=== PATIENT | female | born 1940 | race Caucasian/White ===

== ENCOUNTER 2018-07-27 08:59 | Inpatient (IN) | payer MEDICARE, MEDICAID ==
[~2018-07-27] VITALS: Ht 157.5 cm; Wt 74.8 kg
--- NOTE | 2018-07-27 08:59 | NUR ---
BBRA 101 FROM HOME C/O NEAR SYNCOPAL EPISODE, FOUND IN CHAIR BY EMS. LIVES WITH . C/O OF ABD PAIN AND NAUSEA. NAD NOTED. PT AAO X3, LATVIAN SPEAKER. RR EVEN AND UNLABORED. CEDRICK. AT BEDSIDE FOR EVAL.
[2018-07-27] MEDS ORDERED: ONDANSETRON HCL/PF 4 MG/2 ML VIAL ONE (09:16)
[2018-07-27] MEDS ORDERED: MORPHINE SULFATE INJ 4 MG/ML DISP.SYRIN ONE (09:17)
--- NOTE | 2018-07-27 09:27 | NUR ---
OUT FOR CT OF HEAD, ABDOMEN AND PELVIS
[2018-07-27 09:28] LABS: CALCIUM, SERUM 8.9 mg/dL (8.5-10.1); CARBON DIOXIDE 27 mmol/L (21-32); CHLORIDE 102 mmol/L (98-107); CREATININE 0.9 mg/dL (0.6-1.3); GLUCOSE 184 mg/dL (74-106); POTASSIUM 4.5 mmol/L (3.5-5.1); SODIUM SERUM 136 mmol/L (136-145); UREA NITROGEN, BLOOD 21 mg/dL (7-18)
[2018-07-27] MEDS ORDERED: ONDANSETRON HCL/PF 4 MG/2 ML VIAL IVP ONE (09:30)
[2018-07-27] MEDS ORDERED: IV NS 0.9% 1,000 ML BAG IV ONE (09:30)
[2018-07-27] MEDS ORDERED: MORPHINE SULFATE INJ 2 MG/ML DISP.SYRIN IV ONE (09:30)
[2018-07-27 09:33] LABS: BASOPHILS # (AUTO) 0.1 /CMM (0.0-0.2); BASOPHILS % (AUTO) 0.7 % (0.0-2.0); EOSINOPHILS % (AUTO) 0.6 % (0.0-6.0); HEMATOCRIT 43 % (33-45); HEMOGLOBIN 14.6 g/dL (11.5-14.8); LYMPHOCYTES # (AUTO) 3.1 /CMM (0.8-4.8); LYMPHOCYTES % (AUTO) 34.6 % (20.0-44.0); MEAN CORPUSCULAR HGB CONC 34 g/dl (31.0-36.0); MEAN CORPUSCULAR VOLUME 83 fL (82-100); MONOCYTES # (AUTO) 0.5 /CMM (0.1-1.30); NEUTROPHILS # (AUTO) 5.3 /CMM (1.8-8.9); NEUTROPHILS % (AUTO) 58.1 % (43.0-81.0); PLATELET COUNT (AUTO) 261 /CMM (150-450); RED BLOOD CELL COUNT(AUTO) 5.22 MIL/uL (4.0-5.2)
[2018-07-27 09:35] LABS: ALANINE AMINOTRANSFERASE 25 U/L (12-78); ALBUMIN 3.2 g/dL (3.4-5.0); ALKALINE PHOSPHATASE 72 U/L (46-116); ASPARTATE AMINOTRANSFERASE 16 U/L (15-37); BILIRUBIN,DIRECT 0.1 mg/dL (0.0-0.2); BILIRUBIN,TOTAL 0.5 mg/dL (0.2-1.0); LIPASE 257 U/L (73-393); TOTAL PROTEIN, SERUM 6.7 g/dL (6.4-8.2)
[2018-07-27] MEDS ORDERED: MAG HYDROX/AL HYDROX/SIMETH 30 ML UDC PO PRN (12:00)
[2018-07-27] MEDS ORDERED: DEXTROSE 50%-WATER 50 ML DISP.SYRIN IV PRN (12:00)
[2018-07-27] MEDS ORDERED: HYDROCODONE/APAP 10/325MG 1 EA TABLET PO PRN (12:00)
[2018-07-27] MEDS ORDERED: HYDROCODONE/APAP 5/325MG 1 EACH TABLET PO PRN (12:00)
[2018-07-27] MEDS ORDERED: TEMAZEPAM 15 MG CAPSULE PO PRN (12:00)
[2018-07-27] MEDS ORDERED: ONDANSETRON HCL/PF 4 MG/2 ML VIAL IVP PRN (12:00)
[2018-07-27] MEDS ORDERED: ACETAMINOPHEN 325 MG TABLET PO PRN (12:00)
--- NOTE | 2018-07-27 12:02 | NUR ---
REPORT GIVEN TO ANTONIO BENDER.
[2018-07-27] MEDS: BLOOD SUGAR DIAGNOSTIC 1 EACH STRIP IN SCH ×3 (12:30→21:32)
--- NOTE | 2018-07-27 12:30 | NUR ---
HEATER ROOM HELPERCOMMERCIAL PEST CONTROL TECHNICIAN NOTES RECEIVED PT FROM ER TO ROOM 117(2)BY ANDREIA.ALERT/ORIENTED X4 WITH ANXIOUS.C/O ABDOMINAL PAIN.ON TELE HR IS 70'S WITH SR.ON ROOM AIR,TOLERATING WELL.NO SOB AND ACUTE DISTRESS NOTED.IV LINE IS ON LEFT HAND G20,SITE IS CLEAN,DRY AND INTACT.NO INFILTRATION NOTED.FAMILY IS AT BEDSIDE.SAFETY IS MAINTAINED AT ALL TIMES.BED IS IN LOW POSITION AND LOCKED.CALL LIGHT IS WITHIN REACH.WILL CONTINUE TO MONITOR THE PT CLOSELY. Addendum: 07/27/18 at 1636 by ANTONIO RAO RN SKIN ASSESSMENT IS DONE,NOTED WITH REDNESS ON SACRAL AND CHEST.PT IS CLEAN AND DRY.DIAPER IS ON.VITAL SIGNS CHECKED AND RECORDED.
--- NOTE | 2018-07-27 13:30 | NUR ---
RELATIONSHIP MGR NOTES PT IS CLEAN AND DRY.C/O ABDOMINAL PAIN.OFFER NORCO,BUT PT REFUSED IT CAUSE DIZZY.LEONOR HAMILTON MADE AWARE.AND FAMILY IS REQUESTING TO MAKE PT TO USE RESTROOM BY WALKING OR IN BEDSIDE COMMODE.WE TRIED TO EXPLAIN THE COMPLICATIONS AND ABOUT PT EVAL BEFORE SHE MAKES TO WALK.BUT FAMILY AND PT REFUSED AND THEY WANTS TO WALK NOW AND SAID THEY WILL TAKE THE RESPONSIBILITY FOR THE WHOLE THING.BY 2 PERSON ASSISTANCE MADE THE PT SIT IN BEDSIDE COMMODE.TOLERATING WELL.LEONOR HAMILTON MADE AWARE.
[2018-07-27] MEDS: MAGNESIUM HYDROXIDE 30 ML UDC PO PRN (13:34)
[2018-07-27] MEDS: IV NS 0.9% 1,000 ML IV PRN (14:48)
[2018-07-27 16:00] VITALS: BP 138/74
--- NOTE | 2018-07-27 16:30 | NUR ---
MANAGER LIBRARY NOTES PER PT REQUEST,CONSUMER CREDIT COUNSELOR JOY D/C NORCO AND START TRAMADOL 50MG PO Q8HRS.NEW ORDERS NOTED AND CARRIED OUT.
[2018-07-27] MEDS: INSULIN REGULAR, HUMAN 100 UNIT/ML 3 ML VIAL SQ PRN (16:50)
[2018-07-27] MEDS: TRAMADOL HCL 50 MG TABLET PO PRN (17:14)
--- NOTE | 2018-07-27 17:15 | NUR ---
LABORER AQUATIC LIFE NOTES NOTED WITH LEFT LOWER LEG SWELLING.REPORTED PAIN 7/10.TAB TRAMADOL GIVEN.ELEVATED THE LEG.NOTED TO RECREATION THERAPY AIDE JOY,ORDERED WILL COME AND SEE THE PT SOON.
[2018-07-27] MEDS ORDERED: CARISOPRODOL 350 MG TABLET PO PRN (18:00)
--- NOTE | 2018-07-27 18:47 | NUR ---
SAND SIFTER CLOSING NOTES PT IS ON BED.C/O PAIN ON LEFT LEG.WAITING FOR THE VENOUS DOPPLER ON LEFT LOWER LEG FOR SWELLING.NO SOB AND ACUTE DISTRESS NOTED.ENDORSED TO HEALTH AND WELLNESS INSTRUCTOR RN FOR FOLLOW UP THE VENOUS DOPPLER AND MONITOR THE PAIN LEVEL.
--- NOTE | 2018-07-27 19:19 | NUR ---
INITIAL DUPLEX VENOUS LOWER EXT BI TEST SHOWED POSITIVE FOR DVT AT LEFT SFV PROX, LEFT SFV MID AND LEFT POPLITEAL VEIN AREAS. ADVISED YULIA ALVAREZ OF PRELIMINARY RESULTS.
--- NOTE | 2018-07-27 19:55 | NUR ---
RN OPENING NOTES RECEIVED REPORT FROM DAYSHIFT RN. FOUND Pt AWAKE RESTING IN BED. NO S/S OF ACUTE DISTRESS OR SOB NOTED. Pt IS A/OX3, VERBAL, ABLE TO MAKE NEEDS KNOWN. IV ACCESS ON L HAND #20G/ SAFETY MEASURES IN PLACE. BED LOW, LOCKED, HOB ELEVATED, SIDE RAILS UP, CALL LIGHT AND BEDSIDE TABLE WITHIN REACH. WILL CONTINUE TO MONITOR Pt's CONDITION AND SAFETY THROUGHOUT THE NIGHT.
[2018-07-27 20:00] VITALS: BP 138/72
[2018-07-27 21:00] VITALS: BP 110/61
[2018-07-27] MEDS: RIVAROXABAN 15 MG TABLET PO SCH (21:26)
--- NOTE | 2018-07-27 21:36 | NUR ---
RN NOTES HS ACCUCHECK BG 152. Pt REFUSED INSULIN AT THIS TIME. Per Pt STATEMENT SAID 152 IS FINE FOR HER AND THAT HER BLOOD SUGAR TENDS TO DROP IN THE AM. WILL RECHECK BG FOR AC ACCUCHECK.
[2018-07-28] VITALS (7 sets, daily range): BP systolic 112–153; BP diastolic 52–77
[2018-07-28] MEDS: MAGNESIUM HYDROXIDE 30 ML UDC PO PRN (01:24)
--- NOTE | 2018-07-28 01:40 | NUR ---
RN NOTES SPOKE WITH DR JOHNSTON ON THE PHONE REGARDING Pt's SITUATION. Pt IS C/O SEVERE CONSTIPATION THAT HAS NOT BEEN RESOLVED FOR THE PAST 3 DAYS. MD ORDERED X1 DOSE OF MIRALAX 17GM AND X1 DOSE OF DULCOLAX SUPP. WILL CARRY OUT ORDERS.
[2018-07-28] MEDS ORDERED: POLYETHYLENE GLYCOL 3350 17 GM POWD.PACK PO ONE (02:00)
[2018-07-28] MEDS ORDERED: BISACODYL SUPP (10 MG) 10 MG/SUPP.RECT SUPP.RECT RC ONE (02:00)
[2018-07-28 06:49] LABS: BASOPHILS # (AUTO) 0.1 /CMM (0.0-0.2); BASOPHILS % (AUTO) 0.4 % (0.0-2.0); EOSINOPHILS % (AUTO) 0.2 % (0.0-6.0); HEMATOCRIT 42 % (33-45); LYMPHOCYTES # (AUTO) 1.9 /CMM (0.8-4.8); LYMPHOCYTES % (AUTO) 13.8 % (20.0-44.0); MEAN CORPUSCULAR HGB CONC 34 g/dl (31.0-36.0); MEAN CORPUSCULAR VOLUME 82 fL (82-100); MONOCYTES # (AUTO) 0.8 /CMM (0.1-1.30); MONOCYTES % (AUTO) 5.8 % (2.0-12.0); NEUTROPHILS # (AUTO) 10.8 /CMM (1.8-8.9); NEUTROPHILS % (AUTO) 79.8 % (43.0-81.0); PLATELET COUNT (AUTO) 266 /CMM (150-450); RED BLOOD CELL COUNT(AUTO) 5.08 MIL/uL (4.0-5.2); WHITE BLOOD COUNT (AUTO) 13.6 K/uL (4.3-11.0)
[2018-07-28 07:02] LABS: CALCIUM, SERUM 8.5 mg/dL (8.5-10.1); CARBON DIOXIDE 27 mmol/L (21-32); CHLORIDE 106 mmol/L (98-107); CREATININE 0.9 mg/dL (0.6-1.3); GLUCOSE 184 mg/dL (74-106); PHOSPHORUS 2.9 mg/dL (2.5-4.9); POTASSIUM 4.7 mmol/L (3.5-5.1); SODIUM SERUM 142 mmol/L (136-145); UREA NITROGEN, BLOOD 16 mg/dL (7-18)
[2018-07-28 07:15] LABS: CHOLESTEROL 210 mg/dL (<200); HDL CHOLESTEROL 50 mg/dL (40-60); LDL 152 mg/dL (0-99); THYROID STIMULATING HORMONE 1.506 uIU/mL (0.358-3.74); TRIGLYCERIDES 68 mg/dL (30-150)
[2018-07-28] MEDS: BLOOD SUGAR DIAGNOSTIC 1 EACH STRIP IN SCH ×4 (07:30→21:05)
--- NOTE | 2018-07-28 07:50 | NUR ---
RN CLOSING NOTES NO SIGNIFICANT CHANGES IN Pt's CONDITION. Pt REMAINS STABLE PER BASELINE. ALL NEEDS MET AND ATTENDED TO. NO S/S OF ACUTE DISTRESS OR SOB NOTED DURING THE NIGHT. SAFETY MEASURES IN PLACE. WILL ENDORSE TO DAYSHIFT RN FOR Pt's OLIVIA.
[2018-07-28] MEDS: PANTOPRAZOLE 40 MG TABLET.DR PO SCH (08:31)
[2018-07-28] MEDS: INSULIN REGULAR, HUMAN 100 UNIT/ML 3 ML VIAL SQ PRN ×3 (08:37→21:25)
[2018-07-28] MEDS: RIVAROXABAN 15 MG TABLET PO SCH ×2 (08:39→17:24)
--- NOTE | 2018-07-28 09:38 | NUR ---
RN OPENING NOTES FOUND Pt AWAKE RESTING IN BED. NO S/S OF ACUTE DISTRESS OR SOB NOTED. Pt IS A/OX3, VERBAL, ABLE TO MAKE NEEDS KNOWN. IV ACCESS ON L HAND #20G/ SAFETY MEASURES IN PLACE. BED LOW, LOCKED, HOB ELEVATED, SIDE RAILS UP, CALL LIGHT AND BEDSIDE TABLE WITHIN REACH. WILL CONTINUE TO MONITOR
--- NOTE | 2018-07-28 19:11 | NUR ---
nursing note patient unable to stand for orthostatic blood pressures.
--- NOTE | 2018-07-28 19:37 | NUR ---
POLICY WRITER TYPIST OPENING NOTES: RECEIVED PT ON ROOM AIR AND IS TOLERATING WELL. PT ON PHONE AT THIS TIME. NO SOB NOTED. NO S/S OF DISTRESS. PT HAS IV INTACT AND IS BEING INFUSED WITH IV NS AT 75ML/HR. BED KEPT IN LOW, LOCKED POSITION, AND SIDE RAILS X 2UP. PT ON TELE BOX AND READING SHOWS SR 79. WILL CONTINUE TO MONITOR PT.
[2018-07-28] MEDS: TRAMADOL HCL 50 MG TABLET PO PRN (21:24)
--- NOTE | 2018-07-28 21:30 | NUR ---
YOUTH ACCOMMODATION SUPPORT WORKER NOTES: PT COMPLAINING OF 6/10 LOWER BACK PAIN. PT WAS ADMINISTERED TRAMADOL 50MG PO. BLOOD SUGAR WAS 209. 4 UNITS OF INSULIN WAS ADMINISTERED. SNACK PROVIDED AT BEDSIDE.
[2018-07-29] VITALS: BP 134/74
[2018-07-29] MEDS: IV NS 0.9% 1,000 ML IV PRN (01:07)
[2018-07-29 05:00] VITALS: BP_SYST 133; BP_SYST 135; BP_DIAS 67; BP_DIAS 75
--- NOTE | 2018-07-29 06:21 | NUR ---
SPORTS MEDICINE TRAINER CLOSING NOTES: ALL NEEDS WERE ATTENDED AND ANTICIPATED FOR. PT KEPT CLEAN, DRY, AND COMFORTABLE. PT ON ROOM AIR AND TOLERATING WELL. PT ASLEEP AT THIS TIME. IV REMAINS ON R HAND #24G AND IS BEING INFUSED WITH IV NS AT 75ML/HR. BILATERAL LEGS OFFLOADED WITH PILLOW. BED KEPT IN LOW, LOCKED POSITION, AND SIDE RAILS X 2UP. PT ON TELE BOX AND READING SHOWS SR 62. PT ANTICIPATING TO GO HOME TODAY. WILL ENDORSE TO AM NURSE FOR OLIVIA.
[2018-07-29] MEDS: BLOOD SUGAR DIAGNOSTIC 1 EACH STRIP IN SCH ×2 (07:30→12:48)
[2018-07-29 08:00] VITALS: BP 110/66
[2018-07-29] MEDS: RIVAROXABAN 15 MG TABLET PO SCH (08:52)
[2018-07-29] MEDS: PANTOPRAZOLE 40 MG TABLET.DR PO SCH (08:52)
[2018-07-29] MEDS: INSULIN REGULAR, HUMAN 100 UNIT/ML 3 ML VIAL SQ PRN (08:56)
[2018-07-29 09:44] LABS: BASOPHILS # (AUTO) 0.1 /CMM (0.0-0.2); BASOPHILS % (AUTO) 0.7 % (0.0-2.0); EOSINOPHILS % (AUTO) 0.4 % (0.0-6.0); HEMATOCRIT 42 % (33-45); LYMPHOCYTES # (AUTO) 1.9 /CMM (0.8-4.8); LYMPHOCYTES % (AUTO) 22.8 % (20.0-44.0); MEAN CORPUSCULAR HGB CONC 34 g/dl (31.0-36.0); MEAN CORPUSCULAR VOLUME 84 fL (82-100); MONOCYTES # (AUTO) 0.5 /CMM (0.1-1.30); NEUTROPHILS # (AUTO) 5.8 /CMM (1.8-8.9); NEUTROPHILS % (AUTO) 70.1 % (43.0-81.0); PLATELET COUNT (AUTO) 227 /CMM (150-450); WHITE BLOOD COUNT (AUTO) 8.3 K/uL (4.3-11.0)
[2018-07-29 09:57] LABS: CALCIUM, SERUM 8.7 mg/dL (8.5-10.1); CARBON DIOXIDE 29 mmol/L (21-32); CHLORIDE 103 mmol/L (98-107); CREATININE 1.1 mg/dL (0.6-1.3); GLUCOSE 294 mg/dL (74-106); MAGNESIUM 1.8 mg/dL (1.8-2.4); SODIUM SERUM 137 mmol/L (136-145); UREA NITROGEN, BLOOD 15 mg/dL (7-18)
[2018-07-29] MEDS ORDERED: Rivaroxaban PO (13:32)
--- NOTE | 2018-07-29 18:41 | NUR ---
NURSING NOTES PATIENT DISCHARGED HOME WITH FAMILY IN STABLE CONDITION PRESCRIPTION GIVEN TO PATIENT AND TOLD TO TAKE TO HER PHARMACY.
== END 2018-07-29 14:03 | disposition home or self-care (01) | DRG 175 ==
LOC: ER 09:01 → TELE1 10:42
PROVIDERS: ADMIT Nurse Practitioner Acute Care; ATTEND Internal Medicine
DX: I26.99 Other pulmonary embolism without acute cor pulmonale (principal); N17.0 Acute kidney failure with tubular necrosis; I82.412 Acute embolism and thrombosis of left femoral vein; E44.1 Mild protein-calorie malnutrition; I82.432 Acute embolism and thrombosis of left popliteal vein; R55 Syncope and collapse; E11.9 Type 2 diabetes mellitus without complications; E78.5 Hyperlipidemia, unspecified; I25.10 Atherosclerotic heart disease of native coronary artery without angina pectoris; K21.9 Gastro-esophageal reflux disease without esophagitis; K59.00 Constipation, unspecified; E66.9 Obesity, unspecified; Z68.31 Body mass index [BMI] 31.0-31.9, adult; K44.9 Diaphragmatic hernia without obstruction or gangrene; I51.7 Cardiomegaly; E27.8 Other specified disorders of adrenal gland; M47.9 Spondylosis, unspecified
CPT/HCPCS: 36415; 70450-TC; 71045-TC; 80048-TC; 80061-TC; 80076-TC; 82962-TC; 83690-TC; 83735-TC; 84100-TC; 84443-TC; 84484-TC; 85025-TC; 85730-TC; 87081-TC; 93307-TC; 93970-TC; G0378; J1815; J2270; J2405; J3490; J7030

== ENCOUNTER 2022-06-17 16:15 | Inpatient (IN) | payer MEDICARE, OTHER ==
[~2022-06-17] VITALS: Ht 162.6 cm; Wt 76.7 kg
[~2022-06-17 16:15] MED LIST: Rivaroxaban PO
--- NOTE | 2022-06-17 16:35 | NUR ---
BIB RA 60 FROM HOME,C/O LEFT LEG EDEMA LEFT UPPER EXTREMITY PAIN X 1 MONTH, WORSE X 1 WEEK. PLACED ON BED. AAOX4, BREATHING EVEN AND UNLABORED SATURATING AT 98%RA.
--- NOTE | 2022-06-17 17:10 | NUR ---
BLOOD DRAWN AND SWAB FOR COVID19 SENT TO LAB
--- NOTE | 2022-06-17 17:12 | NUR ---
MOVE SHEET SUBMITTED.
--- NOTE | 2022-06-17 17:17 | NUR ---
LAURENCE U/S TECH AT BEDSIDE
[2022-06-17 17:28] LABS: BASOPHILS % (AUTO) 0.3 % (0.0-2.0); HEMATOCRIT 44 % (33-45); HEMOGLOBIN 14.8 g/dL (11.5-14.8); LYMPHOCYTES % (AUTO) 23.7 % (20.0-44.0); MEAN CORPUSCULAR HGB CONC 34 g/dl (31.0-36.0); MEAN CORPUSCULAR VOLUME 84 fL (82-100); MONOCYTES # (AUTO) 0.5 K/uL (0.1-1.30); MONOCYTES % (AUTO) 6.5 % (2.0-12.0); NEUTROPHILS # (AUTO) 5.8 K/uL (1.8-8.9); NEUTROPHILS % (AUTO) 68.5 % (43.0-81.0); PLATELET COUNT (AUTO) 264 K/uL (150-450); RED BLOOD CELL COUNT(AUTO) 5.28 MIL/uL (4.0-5.2); WHITE BLOOD COUNT (AUTO) 8.4 K/uL (4.3-11.0)
[2022-06-17 17:41] LABS: ALANINE AMINOTRANSFERASE 29 U/L (12-78); ALKALINE PHOSPHATASE 76 U/L (46-116); ASPARTATE AMINOTRANSFERASE 20 U/L (15-37); BILIRUBIN,DIRECT 0.2 mg/dL (0.0-0.2); BILIRUBIN,TOTAL 0.5 mg/dL (0.2-1.0); CALCIUM, SERUM 9.2 mg/dL (8.5-10.1); CARBON DIOXIDE 33 mmol/L (21-32); CHLORIDE 112 mmol/L (98-107); GLUCOSE 163 mg/dL (74-106); POTASSIUM 3.9 mmol/L (3.5-5.1); SODIUM SERUM 142 mmol/L (136-145); TOTAL PROTEIN, SERUM 7.7 g/dL (6.4-8.2); UREA NITROGEN, BLOOD 18 mg/dL (7-18)
--- NOTE | 2022-06-17 17:45 | NUR ---
PATIENT TAKEN TO CT VIA ANDREIA
--- NOTE | 2022-06-17 18:01 | NUR ---
[facility] CALLED MIDDLE SCHOOL VOLLEYBALL COACH PAGED.
[2022-06-17] MEDS ORDERED: ASPIRIN 81 MG TAB.CHEW PO ONE (19:00)
[2022-06-17] MEDS ORDERED: ENOXAPARIN SODIUM 80 MG/0.8 ML DISP.SYRIN SQ ONE ×2 (19:00→19:30)
--- NOTE | 2022-06-17 19:11 | NUR ---
[facility] CALLED PIVOT MAKER PAGED.
[2022-06-17] MEDS ORDERED: ASPIRIN 81 MG TAB.CHEW ONE (19:30)
--- NOTE | 2022-06-17 21:00 | NUR ---
REPORT GIVEN TO TAYLOR RN ROOM 327 FOR OLIVIA
[2022-06-17 21:17] VITALS: BP 136/59
--- NOTE | 2022-06-17 21:20 | NUR ---
TRANSFERRED TO [facility] UNDER ACLS
--- NOTE | 2022-06-17 21:30 | NUR ---
PATIENT SCHEDULING MANAGER NOTES RECEIVED PATIENT VIA GURNEY FROM ER ACCOMPANIED BY RN AND ACCESS SERVICES REPRESENTATIVE. BREATHING ON ROOM AIR, EVEN AND UNLABORED. NO SIGNS OF RESPIRATORY DISTRESS. IV ACCESS AT RIGHT AC #20, SALINE LOCK, FLUSHING WELL. ORIENTED TO ROOM SET-UP. BELONGINGS ITEMIZED AND DOCUMENTED. SKIN ASSESSMENT DONE AND PHOTOGRAPHED. SAFETY PRECAUTIONS INITIATED, SIDE RAILS UP X2, BED LOWERED AND LOCKED. CALL LIGHT WITHIN REACH. WILL CONTINUE TO MONITOR
[2022-06-17] MEDS ORDERED: MAG HYDROX/AL HYDROX/SIMETH 30 ML UDC PO PRN (22:00)
[2022-06-17] MEDS ORDERED: MAGNESIUM HYDROXIDE 30 ML UDC PO PRN (22:00)
[2022-06-17] MEDS ORDERED: Z GUARD REMEDY 4 OZ OINT TP PRN (22:00)
[2022-06-17] MEDS ORDERED: ZOLPIDEM TARTRATE 5 MG TABLET PO PRN (22:00)
[2022-06-17] MEDS ORDERED: ONDANSETRON HCL/PF 4 MG/2 ML VIAL IVP PRN (22:00)
[2022-06-17] MEDS ORDERED: DEXTROSE 50%-WATER 50 ML DISP.SYRIN IV PRN (22:00)
[2022-06-17] MEDS: SIMVASTATIN 20 MG TABLET PO SCH (22:35)
[2022-06-17] MEDS: ASPIRIN 81 MG TAB.CHEW PO SCH (22:35)
[2022-06-17] MEDS: BLOOD SUGAR DIAGNOSTIC 1 EACH STRIP IN SCH (22:35)
[2022-06-17] MEDS: INSULIN REGULAR, HUMAN 100 UNIT/ML 3 ML VIAL SQ PRN (22:54)
[2022-06-17 23:37] VITALS: BP 136/59
[2022-06-18] VITALS: BP 112/52
[2022-06-18 04:00] VITALS: BP 102/33
[2022-06-18] MEDS: ACETAMINOPHEN 325 MG TABLET PO PRN ×2 (05:18→19:32)
--- NOTE | 2022-06-18 05:20 | NUR ---
RN NOTES PATIENT IS COMPLAINING OF PAIN AT LEFT LEG, SWELLING, WARM TO TOUCH. RATED PAIN SCALE 8/10. GIVEN TYLENOL 650MG ORALLY. WILL CONTINUE TO MONITOR.
[2022-06-18] MEDS: BLOOD SUGAR DIAGNOSTIC 1 EACH STRIP IN SCH ×4 (06:21→21:50)
[2022-06-18 06:42] LABS: BASOPHILS % (AUTO) 0.3 % (0.0-2.0); EOSINOPHILS % (AUTO) 1.7 % (0.0-6.0); HEMATOCRIT 39 % (33-45); HEMOGLOBIN 13.4 g/dL (11.5-14.8); LYMPHOCYTES % (AUTO) 25.8 % (20.0-44.0); MEAN CORPUSCULAR HGB CONC 34 g/dl (31.0-36.0); MEAN CORPUSCULAR VOLUME 83 fL (82-100); MONOCYTES # (AUTO) 0.6 K/uL (0.1-1.30); MONOCYTES % (AUTO) 8.1 % (2.0-12.0); NEUTROPHILS % (AUTO) 64.1 % (43.0-81.0); PLATELET COUNT (AUTO) 250 K/uL (150-450); RED BLOOD CELL COUNT(AUTO) 4.68 MIL/uL (4.0-5.2); WHITE BLOOD COUNT (AUTO) 7.8 K/uL (4.3-11.0)
[2022-06-18 07:12] LABS: CALCIUM, SERUM 8.8 mg/dL (8.5-10.1); CARBON DIOXIDE 27 mmol/L (21-32); CHLORIDE 107 mmol/L (98-107); CREATININE 0.9 mg/dL (0.6-1.3); GLUCOSE 81 mg/dL (74-106); MAGNESIUM 1.8 mg/dL (1.8-2.4); PHOSPHORUS 3.5 mg/dL (2.5-4.9); POTASSIUM 3.7 mmol/L (3.5-5.1); SODIUM SERUM 142 mmol/L (136-145); UREA NITROGEN, BLOOD 18 mg/dL (7-18)
--- NOTE | 2022-06-18 07:17 | NUR ---
ASSISTANT RESEARCH SCIENTIST CLOSING NOTES PATIENT IS AWAKE LYING IN BED. BREATHING ON ROOM AIR, EVEN AND UNLABORED. NO SIGNS OF RESPIRATORY DISTRESS. IV ACCESS AT RIGHT AC #20, SALINE LOCK, FLUSHING WELL. DUE MEDS GIVEN. KEPT COMFORTABLE. SAFETY PRECAUTIONS INITIATED, SIDE RAILS UP X2, BED LOWERED AND LOCKED. CALL LIGHT WITHIN REACH. WILL ENDORSE TO DAY SHIFT RN FOR OLIVIA.
[2022-06-18 07:26] LABS: CHOLESTEROL 95 mg/dL (<200); HDL CHOLESTEROL 43 mg/dL (40-60); LDL 43 mg/dL (0-99); T4 (THYROXINE) 6.9 ug/dL (4.7-13.3); THYROID STIMULATING HORMONE 2.574 uIU/mL (0.358-3.74); TRIGLYCERIDES 94 mg/dL (30-150)
--- NOTE | 2022-06-18 07:30 | NUR ---
PRINTING PLATE SETTER NOTES RECEIVED PATIENT A/OX4. BREATHING ON ROOM AIR, EVEN AND UNLABORED. NO SIGNS OF RESPIRATORY DISTRESS. IV ACCESS AT RIGHT AC #20, SALINE LOCK, FLUSHING WELL. SKIN . SAFETY PRECAUTIONS INITIATED, SIDE RAILS UP X2, BED LOWERED AND LOCKED. CALL LIGHT WITHIN REACH. WILL CONTINUE TO MONITOR Addendum: 06/18/22 at 1808 by CHIDI KINSEY RN RN OPENING NOTES
[2022-06-18 08:00] VITALS: BP 126/64
[2022-06-18] MEDS: ASPIRIN 81 MG TAB.CHEW PO SCH (08:49)
[2022-06-18] MEDS: PANTOPRAZOLE 40 MG VIAL IV SCH (08:50)
[2022-06-18] MEDS ORDERED: ENOXAPARIN SODIUM 80 MG/0.8 ML DISP.SYRIN SQ SCH (09:00)
[2022-06-18] MEDS ORDERED: TRAM50TA2 PO (09:33)
[2022-06-18] MEDS ORDERED: ASPI-1420 PO (09:33)
[2022-06-18] MEDS ORDERED: GLIM4TAB37 PO (09:33)
[2022-06-18] MEDS ORDERED: SIMV-49 PO (09:33)
[2022-06-18] MEDS ORDERED: OMEP20CA15 PO (09:33)
[2022-06-18] MEDS ORDERED: MECL-159 PO (09:33)
[2022-06-18] MEDS ORDERED: LOSA50TA39 PO (09:33)
[2022-06-18] MEDS ORDERED: SITA1TAB6 PO (09:33)
[2022-06-18] MEDS ORDERED: LEVO100T PO (09:33)
[2022-06-18] MEDS ORDERED: GABA-532 PO (09:33)
[2022-06-18] MEDS: INSULIN REGULAR, HUMAN 100 UNIT/ML 3 ML VIAL SQ PRN ×3 (13:41→23:36)
[2022-06-18 16:00] VITALS: BP 153/66
[2022-06-18] MEDS: APIXABAN 5 MG TABLET PO SCH (17:20)
--- NOTE | 2022-06-18 18:08 | NUR ---
DIRECTOR OF LAND CLOSING NOTES PATIENT IS AWAKE LYING IN BED. BREATHING ON ROOM AIR, EVEN AND UNLABORED. NO SIGNS OF RESPIRATORY/NEURO DISTRESS. IV ACCESS AT RIGHT AC #20, SALINE LOCK, FLUSHING WELL. DUE MEDS GIVEN. KEPT COMFORTABLE. SAFETY PRECAUTIONS INITIATED, SIDE RAILS UP X2, BED LOWERED AND LOCKED. CALL LIGHT WITHIN REACH. WILL ENDORSE TO IMPACT HAMMER OPERATOR RN FOR OLIVIA.
[2022-06-18 20:00] VITALS: BP 119/64
--- NOTE | 2022-06-18 20:00 | NUR ---
REFRIGERATOR GLAZIER OPENING NOTES PATIENT IS AWAKE LYING IN BED. BREATHING ON ROOM AIR, EVEN AND UNLABORED. NO SIGNS OF RESPIRATORY DISTRESS. IV ACCESS AT RIGHT AC #20, SALINE LOCK, FLUSHING WELL. KEPT COMFORTABLE. SAFETY PRECAUTIONS INITIATED, SIDE RAILS UP X2, BED LOWERED AND LOCKED. CALL LIGHT WITHIN REACH. WILL CONTINUE TO MONITOR.
--- NOTE | 2022-06-18 21:00 | NUR ---
RN NOTES PATIENT IS COMPLAINING OF LEFT ANKLE PAIN, DESCRIBED SHARP RATED PAIN 10/10. APPLIED ICE PACK AT AFFECTED SITE. STILL WITH NO ALLEVIATION. WILL CONSULT THE DERRICK WORKER DOCTOR FOR CURRENT PAIN MANAGEMENT.
[2022-06-18] MEDS: SIMVASTATIN 20 MG TABLET PO SCH (21:49)
[2022-06-18] MEDS: MORPHINE SULFATE INJ 2 MG/ML DISP.SYRIN IV PRN (22:33)
[2022-06-19] VITALS: BP 124/62
[2022-06-19 04:00] VITALS: BP 143/64
[2022-06-19] MEDS: MORPHINE SULFATE INJ 2 MG/ML DISP.SYRIN IV PRN ×2 (05:49→10:46)
[2022-06-19 07:16] LABS: BASOPHILS % (AUTO) 0.4 % (0.0-2.0); EOSINOPHILS % (AUTO) 1.2 % (0.0-6.0); HEMATOCRIT 40 % (33-45); HEMOGLOBIN 13.6 g/dL (11.5-14.8); LYMPHOCYTES % (AUTO) 29.3 % (20.0-44.0); MEAN CORPUSCULAR HGB CONC 34 g/dl (31.0-36.0); MEAN CORPUSCULAR VOLUME 84 fL (82-100); MONOCYTES # (AUTO) 0.6 K/uL (0.1-1.30); MONOCYTES % (AUTO) 8.5 % (2.0-12.0); NEUTROPHILS # (AUTO) 4.1 K/uL (1.8-8.9); NEUTROPHILS % (AUTO) 60.6 % (43.0-81.0); PLATELET COUNT (AUTO) 246 K/uL (150-450); WHITE BLOOD COUNT (AUTO) 6.8 K/uL (4.3-11.0)
[2022-06-19] MEDS: BLOOD SUGAR DIAGNOSTIC 1 EACH STRIP IN SCH ×4 (07:34→21:19)
[2022-06-19] MEDS: INSULIN REGULAR, HUMAN 100 UNIT/ML 3 ML VIAL SQ PRN ×4 (07:35→21:33)
--- NOTE | 2022-06-19 07:38 | NUR ---
TOOL PLANER SET UP OPERATOR OPENING NOTES RECEIVED PATIENT LYING IN BED. AOX4, PATIENT IS CALM, NOT SHOWING ANY S/SX OF ANY APPARENT DISTRESS, ON ROOM AIR, NO SOB, BREATHING EVEN AND UNLABORED. NO SIGNS OF RESPIRATORY DISTRESS. IV ACCESS ON RAC G#20, SALINE LOCKED, PATENT, FLUSHING WELL, NO SIGNS OF INFILTRATION. DENIES ANY PAIN OR DISCOMFORT AT THIS MOMENT. SAFETY PRECAUTIONS IN PLACE: BED AT LOWEST POSITION AND LOCKED, SIDE RAILS UP X2, TRAY TABLE AND CALL LIGHT WITHIN REACH. WILL CONTINUE TO MONITOR THROUGHOUT MY SHIFT.
--- NOTE | 2022-06-19 07:46 | NUR ---
ANIMAL TECHNICIAN CLOSING NOTES PATIENT IS AWAKE LYING IN BED. BREATHING ON ROOM AIR, EVEN AND UNLABORED. NO SIGNS OF RESPIRATORY/NEURO DISTRESS. IV ACCESS AT RIGHT AC #20, SALINE LOCK, FLUSHING WELL. DUE MEDS GIVEN. KEPT COMFORTABLE. SAFETY PRECAUTIONS INITIATED, SIDE RAILS UP X2, BED LOWERED AND LOCKED. CALL LIGHT WITHIN REACH. WILL ENDORSE TO DAY SHIFT RN FOR OLIVIA.
[2022-06-19 08:00] VITALS: BP 139/48
[2022-06-19] MEDS: PANTOPRAZOLE 40 MG VIAL IV SCH (08:12)
[2022-06-19] MEDS: APIXABAN 5 MG TABLET PO SCH ×2 (08:13→16:51)
[2022-06-19] MEDS: ASPIRIN 81 MG TAB.CHEW PO SCH (08:13)
[2022-06-19 08:14] LABS: CALCIUM, SERUM 9.1 mg/dL (8.5-10.1); CREATININE 0.8 mg/dL (0.6-1.3); PHOSPHORUS 3.3 mg/dL (2.5-4.9); POTASSIUM 4.1 mmol/L (3.5-5.1)
--- NOTE | 2022-06-19 10:54 | NUR ---
RN NOTES RECEIVED A CALL FROM MRI, PATIENT REPORTS THAT SHE IS AFRAID OF CLOSED SPACES. CALLED PRODUCTION SUPPORT MANAGER ESTEE FOR ANTI ANXIETY ORDER - ORDERED LORAZEPAM 0.5 MG IV ONCE, CARRIED OUT.
[2022-06-19] MEDS ORDERED: LORAZEPAM INJ 2 MG/ML VIAL IV ONE (11:00)
--- NOTE | 2022-06-19 11:21 | NUR ---
RN NOTES GIVEN PATIENT ATIVAN 0.5 MG IV PRIOR TO MRI WITHOUT CONTRAST PROCEDURE, PATIENT WAS PICKED UP AROUND 11:20 AM.
[2022-06-19] MEDS ORDERED: APIX5TAB PO (11:29)
--- NOTE | 2022-06-19 14:00 | NUR ---
RN NOTES PATIENT IS WITH SON KATHY AND AT BEDSIDE. SON KATHY ASKED ABOUT THE MEDS GIVEN TO THE PATIENT IN THE MORNING, ADVISED THAT PATIENT WAS GIVEN ASPIRIN, ELIQUIS FOR THE DVT, PANTOPRAZOLE FOR GERD, INSULIN, AND MORPHINE PRN FOR BREAKTHROUGH PAIN. SON QUESTIONED WHY MORPHINE WAS ORDERED, EXPLAINED THAT THE PATIENT HAS BEEN COMPLAINING OF BREAKTHROUGH PAIN AT AROUND 10 AM ORIGINATING FROM LEFT LEG EVIDENCED BY PATIENT REPORT OF 10/10 PAIN WITH MOANING, RESTLESSNESS, AGITATION, AND GRIMACING. EXPLAINED TO THE SON THAT THE SIDE EFFECTS OF MORPHINE CAN BE DROWSINESS BUT IT HELPS WITH THE PAIN REPORTED BY THE PATIENT. EXPLAINED THAT ATIVAN 0.5 ML VIA IV WAS GIVEN BECAUSE HER MOM VERBALIZED CONCERNS OF CLAUSTROPHOBIA AND WONT BE ABLE TO STAY STILL. WANTED TO SPEAK TO THE MD FOR THE MRI RESULTS STILL, ASKED ERA FONTANEZ NP TO CALL THE SON PER HIS REQUEST. CHARGE NURSE DAVID ALSO SPOKE WITH THE SON IN [place].
--- NOTE | 2022-06-19 14:44 | NUR ---
RN NOTES FISHER CRAB ESTEE ORDERED FURTHER WORK UP FOR PREVIOUS BRAIN MRI - ORDERED CERVICAL SPINE MRI WITHOUT CONTRAST. CARRIED OUT. CALLED MRI TO CHECK IF AVAILABLE, WILL CALL BACK PER DENISSE. PATIENT'S DC IS ON HOLD UNTIL MRI IS RESULTED.
--- NOTE | 2022-06-19 15:00 | NUR ---
RN NOTES RADAR TECHNICIAN ESTEE ORDERED TO DC MORPHINE, CARRIED OUT.
--- NOTE | 2022-06-19 17:32 | NUR ---
RN NOTES - DISCHARGE CANCELLED MRI SCAN RESULTS CAN BACK AND RELAYED TO HOSPITALIST WHO ORDERED TO PLACE THE DISCHARGE ON HOLD DUE TO FURTHER WORK UP. PATIENT HAS BEEN INFORMED, CHARGE NURSE CALLED THE SON IN [place], I CALLED AND CANCELLED THE AMBULANCE AT [phone]. Addendum: 06/19/22 at 1731 by SHARON SCHAEFER RN CALLED LIANNA FROM [facility] TO INFORM ABOUT THE CANCELLATION.
--- NOTE | 2022-06-19 19:20 | NUR ---
DRIVER CLOSING NOTES PATIENT LYING IN BED, AOX4, CALM, ON ROOM AIR, EVEN AND UNLABORED. NO SIGNS OF RESPIRATORY DISTRESS NOTED, NEURO CHECKS DONE, IV ACCESS AT RAC G#20, SALINE LOCKED, FLUSHING WELL. ALL DUE MEDS GIVEN AND ALL NEEDS MET. SAFETY PRECAUTIONS MAINTAINED, SIDE RAILS UP X2, BED LOWERED AND LOCKED. CALL LIGHT AND TRAY TABLE WITHIN REACH. ENDORSED TO INCINERATOR PLANT SUPERVISOR NURSE.
[2022-06-19] MEDS: DEXAMETHASONE 4 MG TABLET PO SCH (19:44)
[2022-06-19 20:00] VITALS: BP 138/84
[2022-06-19] MEDS: SIMVASTATIN 20 MG TABLET PO SCH (21:19)
[2022-06-20] VITALS: BP 114/59
[2022-06-20] MEDS: BLOOD SUGAR DIAGNOSTIC 1 EACH STRIP IN SCH ×2 (06:36→12:10)
[2022-06-20] MEDS: INSULIN REGULAR, HUMAN 100 UNIT/ML 3 ML VIAL SQ PRN ×2 (06:37→13:26)
[2022-06-20 06:42] LABS: HEMATOCRIT 42 % (33-45); HEMOGLOBIN 14.3 g/dL (11.5-14.8); LYMPHOCYTES % (AUTO) 11.9 % (20.0-44.0); MEAN CORPUSCULAR HGB CONC 34 g/dl (31.0-36.0); MEAN CORPUSCULAR VOLUME 84 fL (82-100); MONOCYTES # (AUTO) 0.1 K/uL (0.1-1.30); MONOCYTES % (AUTO) 1.1 % (2.0-12.0); NEUTROPHILS # (AUTO) 7.2 K/uL (1.8-8.9); PLATELET COUNT (AUTO) 255 K/uL (150-450); RED BLOOD CELL COUNT(AUTO) 5.04 MIL/uL (4.0-5.2); WHITE BLOOD COUNT (AUTO) 8.3 K/uL (4.3-11.0)
--- NOTE | 2022-06-20 06:59 | NUR ---
HVAC LEAD CLOSING NOTES PATIENT LYING IN BED, AOX4, CALM, ON ROOM AIR, EVEN AND UNLABORED. NO SIGNS OF RESPIRATORY DISTRESS NOTED IV ACCESS AT RAC G#20, SALINE LOCKED, FLUSHING WELL. ALL DUE MEDS GIVEN AND ALL NEEDS MET. SAFETY PRECAUTIONS MAINTAINED, SIDE RAILS UP X2, BED LOWERED AND LOCKED. CALL LIGHT AND TRAY TABLE WITHIN REACH. WILL CONTINUE TO MONITOR.
[2022-06-20 07:23] LABS: CREATININE 0.9 mg/dL (0.6-1.3); MAGNESIUM 1.8 mg/dL (1.8-2.4); PHOSPHORUS 3.9 mg/dL (2.5-4.9); POTASSIUM 4.6 mmol/L (3.5-5.1)
[2022-06-20 08:00] VITALS: BP 150/67
[2022-06-20] MEDS: APIXABAN 5 MG TABLET PO SCH (08:59)
[2022-06-20] MEDS: ASPIRIN 81 MG TAB.CHEW PO SCH (08:59)
[2022-06-20] MEDS: DEXAMETHASONE 4 MG TABLET PO SCH (08:59)
[2022-06-20] MEDS ORDERED: PANTOPRAZOLE 40 MG/PACK PACK PO SCH (09:00)
[2022-06-20 12:00] VITALS: BP 141/69
[2022-06-20] MEDS: ACETAMINOPHEN 325 MG TABLET PO PRN (12:07)
[2022-06-20] MEDS ORDERED: DEXA4TAB2 PO (13:42)
--- NOTE | 2022-06-20 16:18 | NUR ---
CANE LOADER NOTE PATIENT DISCHARGED FROM UNIT @ 1610. TRANSFERRED TO [facility] VIA AMBULANCE FOR HLOC. ALL BELONGINGS TAKEN WITH PATIENT. REPORT GIVEN TO RECEIVING NURSE, NIECY. PATIENT STABLE UPON TRANSFER.
== END 2022-06-20 16:10 | disposition home or self-care (01) | DRG 552 ==
LOC: ER 16:49 → TELE 20:55
PROVIDERS: ADMIT Nurse Practitioner Acute Care; ATTEND Nurse Practitioner Acute Care
DX: M50.01 Cervical disc disorder with myelopathy, high cervical region (principal); I82.412 Acute embolism and thrombosis of left femoral vein; D68.59 Other primary thrombophilia; K21.9 Gastro-esophageal reflux disease without esophagitis; I25.10 Atherosclerotic heart disease of native coronary artery without angina pectoris; M48.02 Spinal stenosis, cervical region; E03.9 Hypothyroidism, unspecified; E11.9 Type 2 diabetes mellitus without complications; F41.9 Anxiety disorder, unspecified; I10 Essential (primary) hypertension; M62.422 Contracture of muscle, left upper arm
CPT/HCPCS: 36415; 70450-TC; 70551-TC; 71045-TC; 72125-TC; 72128-TC; 72141-TC; 80048-TC; 80061-TC; 80076-TC; 82962-TC; 83735-TC; 84100-TC; 84436-TC; 84443-TC; 84484-TC; 85025-TC; 85730-TC; 87081-TC; 93307-TC; 93971-TC; 97112-TC; 97530-TC; C9113; C9803; G0378; J1650; J1815; J2060; J2270; J2405; J8540

== ENCOUNTER 2022-09-12 16:49 | Emergency (ER) | payer MEDICARE, OTHER ==
[~2022-09-12] VITALS: Ht 154.9 cm; Wt 73.9 kg
[~2022-09-12 16:49] MED LIST changes: +APIX5TAB PO; +ASPI-1420 PO; +DEXA4TAB2 PO; +GABA-532 PO; +GLIM4TAB37 PO; +LEVO100T PO; +LOSA50TA39 PO; +MECL-159 PO; +OMEP20CA15 PO; -Rivaroxaban PO; +SIMV-49 PO; +SITA1TAB6 PO; +TRAM50TA2 PO
--- NOTE | 2022-09-12 17:10 | NUR ---
DEBBIE [id number] From Home per son "Back pain for months has had 3visits in ER they cant figure it out. 3wks ago had FC done. But still having pain". PLACED IN BED, AAOX4, BREATHING EVEN AND UNLABORED SATURATING AT 96%RA
--- NOTE | 2022-09-12 17:26 | NUR ---
URINE SAMPLE SENT TO LAB
[2022-09-12 17:40] LABS: BILIRUBIN,URINE NEGATIVE (NEGATIVE); COLOR,URINE YELLOW (YELLOW); LEUKOCYTE ESTERASE ,URINE 2+ (NEGATIVE); NITRITE, URINE NEGATIVE (NEGATIVE); PH,URINE 5.5 (5.0-8.0); PROTEIN,URINE NEGATIVE (NEGATIVE); UGLUCOSE NEGATIVE (NEGATIVE); UROBILINOGEN,URINE 0.2 EU/dL (0.2)
--- NOTE | 2022-09-12 17:59 | NUR ---
AT BEDSIDE FOR EVAL.
[2022-09-12 18:02] LABS: BACTERIA,URINE 1+ /HPF (None Seen); RBC,URINE 21-50 /HPF (0-2); WBC,URINE 21-50 /HPF (0-3); YEAST,URINE Few /HPF (None Seen)
[2022-09-12] MEDS ORDERED: CYCLOBENZAPRINE 10 MG TABLET ONE (18:14)
[2022-09-12] MEDS ORDERED: LIDOCAINE 5% (PATCH) 1 EA PATCH TP ONE (18:14)
--- NOTE | 2022-09-12 18:26 | NUR ---
REFINING STILL OPERATOR AT BEDSIDE
[2022-09-12] MEDS ORDERED: LIDOCAINE 5% (PATCH) 1 EA PATCH TP SCH (18:30)
[2022-09-12] MEDS ORDERED: CYCLOBENZAPRINE 10 MG TABLET PO ONE (18:30)
[2022-09-12 19:24] LABS: CALCIUM, SERUM 9.1 mg/dL (8.5-10.1); CREATININE 0.9 mg/dL (0.6-1.3); POTASSIUM 3.5 mmol/L (3.5-5.1)
[2022-09-12 19:30] LABS: ALBUMIN 2.8 g/dL (3.4-5.0); BILIRUBIN,DIRECT 0.2 mg/dL (0.0-0.2); BILIRUBIN,TOTAL 0.4 mg/dL (0.2-1.0); TOTAL PROTEIN, SERUM 6.6 g/dL (6.4-8.2)
[2022-09-12 20:06] LABS: CALCIUM, SERUM 9.1 mg/dL (8.5-10.1); CREATININE 0.9 mg/dL (0.6-1.3); POTASSIUM 3.4 mmol/L (3.5-5.1)
[2022-09-12 20:12] LABS: ALBUMIN 2.9 g/dL (3.4-5.0); BILIRUBIN,TOTAL 0.5 mg/dL (0.2-1.0); TOTAL PROTEIN, SERUM 6.8 g/dL (6.4-8.2)
[2022-09-12 20:13] LABS: BASOPHILS % (AUTO) 0.2 % (0.0-2.0); EOSINOPHILS % (AUTO) 0.9 % (0.0-6.0); HEMATOCRIT 38 % (33-45); HEMOGLOBIN 12.3 g/dL (11.5-14.8); LYMPHOCYTES # (AUTO) 2.6 K/uL (0.8-4.8); LYMPHOCYTES % (AUTO) 34.2 % (20.0-44.0); MEAN CORPUSCULAR HGB CONC 33 g/dl (31.0-36.0); MEAN CORPUSCULAR VOLUME 84 fL (82-100); MONOCYTES # (AUTO) 0.5 K/uL (0.1-1.30); MONOCYTES % (AUTO) 6.2 % (2.0-12.0); NEUTROPHILS # (AUTO) 4.5 K/uL (1.8-8.9); NEUTROPHILS % (AUTO) 58.5 % (43.0-81.0); PLATELET COUNT (AUTO) 334 K/uL (150-450); RED BLOOD CELL COUNT(AUTO) 4.51 MIL/uL (4.0-5.2); WHITE BLOOD COUNT (AUTO) 7.7 K/uL (4.3-11.0)
--- NOTE | 2022-09-12 20:36 | NUR ---
APRYL KATHY [phone]
--- NOTE | 2022-09-12 21:26 | NUR ---
PT TAKEN TO CT
[2022-09-12] MEDS ORDERED: CEFTRIAXONE 1GM BAG (ER ONLY) 1 GM/50 ML PIGGYBACK IV ONE (22:00)
[2022-09-12] MEDS ORDERED: HYDROCODONE/APAP 5/325MG TABLET PO ONE (22:00)
[2022-09-12] MEDS ORDERED: CEFTRIAXONE 1GM BAG (ER ONLY) 50 ML IV ONE (22:02)
[2022-09-12] MEDS ORDERED: HYDROCODONE/APAP 5/325MG TABLET ONE (22:03)
[2022-09-12] MEDS ORDERED: CIPR500T5 PO (22:21)
[2022-09-12] MEDS ORDERED: CYCL5TAB PO (22:21)
[2022-09-12] MEDS ORDERED: LIDO700A30 TP (22:23)
--- NOTE | 2022-09-12 22:58 | NUR ---
[facility] CALLED FOR BLS GOING BACK TO [facility] PER ISAIAS LOW 90 MIN
--- NOTE | 2022-09-13 00:30 | NUR ---
Patient discharged to home in stable condition. Written and verbal after care instructions given to patient and son, Ad(over the phone), verbalized understanding of instruction. Patient picked up by [facility] EMT, report given to crew. Son made aware. Transported patient with vitals within normal limits.
[2022-09-13 00:33] VITALS: BP 147/60
[2022-11-20] MEDS ORDERED: SENN-18 PO (17:01)
[2022-11-20] MEDS ORDERED: DOCU-141 PO (17:01)
== END 2022-09-13 00:34 | disposition home or self-care (01) ==
LOC: ER 16:51
DX: M62.830 Muscle spasm of back (principal); N39.0 Urinary tract infection, site not specified; I25.10 Atherosclerotic heart disease of native coronary artery without angina pectoris; I10 Essential (primary) hypertension; K21.9 Gastro-esophageal reflux disease without esophagitis; E11.9 Type 2 diabetes mellitus without complications; F41.9 Anxiety disorder, unspecified; Z79.899 Other long term (current) drug therapy; Z79.82 Long term (current) use of aspirin
CPT/HCPCS: 99285; 74176; 96365; 85025; 87086; 81001; 36415; 80053; 80048; 80076; J0696

== ENCOUNTER 2022-10-23 14:43 | Emergency (ER) | payer MEDICARE, OTHER ==
[~2022-10-23] VITALS: Ht 165.1 cm; Wt 65.8 kg
[~2022-10-23 14:43] MED LIST changes: +CIPR500T5 PO; +CYCL5TAB PO; +LIDO700A30 TP
--- NOTE | 2022-10-23 15:10 | NUR ---
PT IN BED 6, A/O X4 BREATHING EVEN AND UNLABORED. C/O CONSTIPATION FOR 10 DAY. Hx OF STROKE WITH LEFT SIDE DEFICIT. TAKES ASPIRIN ALLERGIC TO MORPHINE. BED IN HIGH LANGLEY, BED LOCKED IN LOWEST POSTION SIDE RALES UP. CONNECTED TO BED SIDE MONITOR VITALS WNL.
[2022-10-23] MEDS ORDERED: PEG 3350/NA SULF,BICARB,CL/KCL 4,000 ML BOTTLE PO ONE (16:00)
[2022-10-23] MEDS ORDERED: METOCLOPRAMIDE HCL 10 MG/2 ML VIAL IV ONE (16:00)
[2022-10-23] MEDS ORDERED: IV NS 0.9% 1,000 ML BAG IV ONE (16:00)
[2022-10-23 16:08] LABS: BASOPHILS % (AUTO) 0.5 % (0.0-2.0); HEMATOCRIT 39 % (33-45); HEMOGLOBIN 12.5 g/dL (11.5-14.8); LYMPHOCYTES % (AUTO) 29.6 % (20.0-44.0); MEAN CORPUSCULAR HGB CONC 32 g/dl (31.0-36.0); MEAN CORPUSCULAR VOLUME 84 fL (82-100); MONOCYTES # (AUTO) 0.6 K/uL (0.1-1.30); MONOCYTES % (AUTO) 8.7 % (2.0-12.0); NEUTROPHILS # (AUTO) 4.1 K/uL (1.8-8.9); NEUTROPHILS % (AUTO) 60.2 % (43.0-81.0); PLATELET COUNT (AUTO) 325 K/uL (150-450); RED BLOOD CELL COUNT(AUTO) 4.59 MIL/uL (4.0-5.2); WHITE BLOOD COUNT (AUTO) 6.8 K/uL (4.3-11.0)
[2022-10-23 16:18] LABS: CALCIUM, SERUM 9.3 mg/dL (8.5-10.1); CREATININE 0.6 mg/dL (0.6-1.3); POTASSIUM 3.4 mmol/L (3.5-5.1)
[2022-10-23 16:25] LABS: ALBUMIN 3.1 g/dL (3.4-5.0); BILIRUBIN,DIRECT 0.1 mg/dL (0.0-0.2); BILIRUBIN,TOTAL 0.4 mg/dL (0.2-1.0); TOTAL PROTEIN, SERUM 6.5 g/dL (6.4-8.2)
[2022-10-23] MEDS ORDERED: IV NS 0.9% 250 ML IV ONE (16:28)
[2022-10-23] MEDS ORDERED: IOHEXOL-300 100 ML VIAL IV ONE (16:28)
[2022-10-23] MEDS ORDERED: METOCLOPRAMIDE HCL 10 MG/2 ML VIAL ONE (16:28)
--- NOTE | 2022-10-23 16:39 | NUR ---
PT TAKEN TO CT
[2022-10-23] MEDS ORDERED: POLY17PO4 PO (17:10)
[2022-10-23] MEDS ORDERED: DOCU-141 PO (17:10)
[2022-10-23] MEDS ORDERED: MAGN296S72 PO (17:10)
--- NOTE | 2022-10-23 17:19 | NUR ---
CALLED [facility] FOR TRANSPORT ETA 45-60 MINS.
[2022-10-23 18:45] VITALS: BP 144/76
== END 2022-10-23 18:52 | disposition home or self-care (01) ==
LOC: ER 14:44
DX: K59.00 Constipation, unspecified (principal); I10 Essential (primary) hypertension; I25.10 Atherosclerotic heart disease of native coronary artery without angina pectoris; K21.9 Gastro-esophageal reflux disease without esophagitis; E11.9 Type 2 diabetes mellitus without complications; F41.9 Anxiety disorder, unspecified; Z79.899 Other long term (current) drug therapy; Z79.82 Long term (current) use of aspirin; Z88.1 Allergy status to other antibiotic agents
CPT/HCPCS: 99285; 74177; 96374; 96361; 85025; 80048; 83690; 80076; 36415; 82962; J2765; J7030; J7050; Q9967

== ENCOUNTER 2022-11-19 15:47 | Inpatient (IN) | payer MEDICARE, OTHER ==
[~2022-11-19] VITALS: Ht 154.9 cm; Wt 65.3 kg
[~2022-11-19 15:47] MED LIST changes: +DOCU-141 PO; +MAGN296S72 PO; +POLY17PO4 PO
--- NOTE | 2022-11-19 16:00 | NUR ---
VALENTINO FROM HOME FOR CONSTIPATION X 1 WEEK. A/O X 3, ABLE TO MAKE NEEDS KNOWN, TOLERATING WELL ON ROOM AIR.
[2022-11-19] MEDS ORDERED: IV NS 0.9% 500 ML BAG IV ONE (16:30)
[2022-11-19] MEDS ORDERED: ADENOSINE 6 MG/2 ML VIAL IVP ONE (16:30)
[2022-11-19] MEDS ORDERED: ONDANSETRON HCL/PF 4 MG/2 ML VIAL IVP ONE (16:30)
--- NOTE | 2022-11-19 17:00 | NUR ---
BLOOD SAMPLES OBTAINED
[2022-11-19 17:22] LABS: BASOPHILS % (AUTO) 0.3 % (0.0-2.0); EOSINOPHILS % (AUTO) 0.4 % (0.0-6.0); HEMATOCRIT 44 % (33-45); HEMOGLOBIN 13.9 g/dL (11.5-14.8); LYMPHOCYTES # (AUTO) 1.3 K/uL (0.8-4.8); LYMPHOCYTES % (AUTO) 10.5 % (20.0-44.0); MEAN CORPUSCULAR HGB CONC 32 g/dl (31.0-36.0); MEAN CORPUSCULAR VOLUME 86 fL (82-100); MONOCYTES # (AUTO) 0.6 K/uL (0.1-1.30); MONOCYTES % (AUTO) 4.8 % (2.0-12.0); NEUTROPHILS # (AUTO) 10.3 K/uL (1.8-8.9); PLATELET COUNT (AUTO) 285 K/uL (150-450); WHITE BLOOD COUNT (AUTO) 12.3 K/uL (4.3-11.0)
[2022-11-19] MEDS ORDERED: ONDANSETRON HCL/PF 4 MG/2 ML VIAL ONE (17:27)
[2022-11-19] MEDS ORDERED: LACTULOSE 10 G/15 ML UDC (PYXIS) PO ONE (17:30)
[2022-11-19 17:33] LABS: CALCIUM, SERUM 9.6 mg/dL (8.5-10.1); CREATININE 0.7 mg/dL (0.6-1.3); POTASSIUM 3.3 mmol/L (3.5-5.1)
[2022-11-19 17:39] LABS: ALBUMIN 3.2 g/dL (3.4-5.0); BILIRUBIN,DIRECT 0.1 mg/dL (0.0-0.2); BILIRUBIN,TOTAL 0.3 mg/dL (0.2-1.0); TOTAL PROTEIN, SERUM 6.8 g/dL (6.4-8.2)
[2022-11-19] MEDS ORDERED: POTASSIUM CHLORIDE 20 MEQ TAB.PRT.SR PO ONE ×2 (18:00→18:10)
[2022-11-19] MEDS ORDERED: LACTULOSE 10 G/15 ML UDC (PYXIS) ONE (18:10)
--- NOTE | 2022-11-19 19:00 | NUR ---
COVID SWAB OBTAINED
--- NOTE | 2022-11-19 19:26 | NUR ---
PER SON, PATIENT IS TAKING AMPICILLIN 500 MG PO BID, BEGAN 3 DAYS AGO FOR UTI. 28 PILLS TOTAL TO COMPLETE TREATMENT. ALSO TAKES DULOXETINE 30 MG PO DAILY AT BEDTIME. WAS IN [facility] 1.5-2 WEEKS AGO FOR PAPPAS CATH REPLACEMENT.
--- NOTE | 2022-11-19 19:31 | NUR ---
URINE SAMPLE OBTAINED
[2022-11-19 19:57] LABS: BILIRUBIN,URINE NEGATIVE (NEGATIVE); COLOR,URINE YELLOW (YELLOW); LEUKOCYTE ESTERASE ,URINE TRACE (NEGATIVE); NITRITE, URINE NEGATIVE (NEGATIVE); PH,URINE 5.5 (5.0-8.0); PROTEIN,URINE NEGATIVE (NEGATIVE); UGLUCOSE NEGATIVE (NEGATIVE); UROBILINOGEN,URINE 0.2 EU/dL (0.2)
--- NOTE | 2022-11-19 19:57 | NUR ---
EPIC PANEL PAGED
[2022-11-19 20:23] LABS: RBC,URINE NONE SEEN /HPF (0-2); WBC,URINE 0-2 /HPF (0-3)
[2022-11-19 20:24] LABS: CALCIUM OXALATE CRYSTALS,UR Moderate /HPF (None Seen)
[2022-11-19 20:26] LABS: BACTERIA,URINE Moderate /HPF (None Seen); SQUAMOUS EPITHELIAL CELL,UR Moderate /HPF (None Seen)
--- NOTE | 2022-11-19 21:16 | NUR ---
REPORT GIVEN TO ELIAS Campbell RN FOR OLIVIA
[2022-11-19 21:35] VITALS: BP 146/55
--- NOTE | 2022-11-19 21:40 | NUR ---
PT TRASFERRED TO 328-2 VIA ACLS PROTOCOL. VSS. ALL BELONGINGS WITH PT.
[2022-11-19] MEDS ORDERED: MAG HYDROX/AL HYDROX/SIMETH 30 ML UDC PO PRN (22:00)
[2022-11-19] MEDS ORDERED: IV D5/0.45 NACL 1,000 ML IV PRN (22:00)
[2022-11-19] MEDS ORDERED: ONDANSETRON HCL/PF 4 MG/2 ML VIAL IVP PRN (22:00)
[2022-11-19] MEDS ORDERED: POLYETHYLENE GLYCOL 3350 17 GM POWD.PACK PO PRN (22:00)
[2022-11-19] MEDS ORDERED: Z GUARD REMEDY 4 OZ OINT TP PRN (22:00)
[2022-11-19] MEDS ORDERED: BISACODYL SUPP (10 MG) 10 MG/SUPP.RECT SUPP.RECT RC PRN (22:00)
[2022-11-19] MEDS ORDERED: MAGNESIUM HYDROXIDE 30 ML UDC PO PRN (22:00)
--- NOTE | 2022-11-19 22:00 | NUR ---
MS RN ADMITTING NOTE PATIENT WAS TRANSFERRED FROM ER TO 328 2 AT 2135H; PATIENT IS A/O X 3, ABLE TO MAKE NEEDS KNOWN; STABLE ON ROOM AIR, BREATHING EVENLY AND NO S/S OF DISTRESS NOTED; WITH IV ACCESS AT RIGHT ANTECUBITAL G# 20 SALINE LOCK; WITH PAPPAS CATHETER IN PLACE DRAINING TO YELLOW COLORED URINE; ORIENTED TO STAFF AND ROOM; PATIENT'S BELONGINGS ACCOUNTED FOR; SKIN ASSESSMENT DONE AND NOTED SACRAL ABRASION, APPLIED OPTIFOAM DRESSING; ENCOURAGED VERBALIZATION OF NEEDS; OFFERED FOOD AND DRINKS; SAFETY MEASURES IMPLEMENTED, BED LOCKED IN LOW POSITION, SIDE RAILS UP X 2, CALL LIGHT AND TABLE WITHIN REACH; WILL CONTINUE TO MONITOR THROUGHOUT SHIFT
[2022-11-19] MEDS ORDERED: TEMAZEPAM 7.5 MG CAPSULE PO PRN (23:30)
[2022-11-20] MEDS ORDERED: DEXTROSE 50%-WATER 50 ML DISP.SYRIN IV PRN (02:00)
[2022-11-20] MEDS: ACETAMINOPHEN 325 MG TABLET PO PRN ×2 (05:40→09:33)
[2022-11-20 06:34] LABS: BASOPHILS % (AUTO) 0.5 % (0.0-2.0); EOSINOPHILS % (AUTO) 1.2 % (0.0-6.0); HEMATOCRIT 39 % (33-45); HEMOGLOBIN 12.7 g/dL (11.5-14.8); LYMPHOCYTES # (AUTO) 2.1 K/uL (0.8-4.8); LYMPHOCYTES % (AUTO) 31.6 % (20.0-44.0); MEAN CORPUSCULAR HGB CONC 33 g/dl (31.0-36.0); MEAN CORPUSCULAR VOLUME 85 fL (82-100); MONOCYTES # (AUTO) 0.5 K/uL (0.1-1.30); MONOCYTES % (AUTO) 7.8 % (2.0-12.0); NEUTROPHILS % (AUTO) 58.9 % (43.0-81.0); PLATELET COUNT (AUTO) 292 K/uL (150-450); RED BLOOD CELL COUNT(AUTO) 4.56 MIL/uL (4.0-5.2); WHITE BLOOD COUNT (AUTO) 6.8 K/uL (4.3-11.0)
[2022-11-20] MEDS: BLOOD SUGAR DIAGNOSTIC 1 EACH STRIP IN SCH ×3 (06:38→17:47)
[2022-11-20] MEDS: INSULIN REGULAR, HUMAN 100 UNIT/ML 3 ML VIAL SQ PRN ×3 (06:38→17:48)
--- NOTE | 2022-11-20 06:39 | NUR ---
MS RN NOTE PATIENT'S BLOOD SUGAR WAS INITIALLY 61. OFFERED ORANGE JUICE AND APPLE SAUCE. PATIENT WAS ABLE TO TAKE THEM. RECHECKED BLOOD SUGAR, WENT UP TO 134. PATIENT IS SUPPOSE TO HAVE 2 UNITS OF REGULAR INSULIN PER SLIDING SCALE, BUT PATIENT REFUSED.
[2022-11-20 06:54] LABS: ALANINE AMINOTRANSFERASE 28 U/L (12-78); ALBUMIN 2.7 g/dL (3.4-5.0); ALKALINE PHOSPHATASE 52 U/L (46-116); ASPARTATE AMINOTRANSFERASE 25 U/L (15-37); BILIRUBIN,TOTAL 0.4 mg/dL (0.2-1.0); CALCIUM, SERUM 8.9 mg/dL (8.5-10.1); CARBON DIOXIDE 27 mmol/L (21-32); CHLORIDE 109 mmol/L (98-107); CREATININE 0.6 mg/dL (0.6-1.3); MAGNESIUM 1.8 mg/dL (1.8-2.4); POTASSIUM 4.2 mmol/L (3.5-5.1); SODIUM SERUM 141 mmol/L (136-145); TOTAL PROTEIN, SERUM 5.9 g/dL (6.4-8.2); UREA NITROGEN, BLOOD 14 mg/dL (7-18)
--- NOTE | 2022-11-20 07:00 | NUR ---
MS RN NOTE LAB CALLED INFORMING THAT PATIENT'S GLUCOSE DURING BLOOD DRAW AT 0600H WAS 46. RECHECKED PATIENT'S BLOOD SUGAR AT 0630, WENT UP TO 135. PATIENT IS STABLE
[2022-11-20 07:03] LABS: GLUCOSE 46 mg/dL (74-106)
--- NOTE | 2022-11-20 07:25 | NUR ---
MS RN CLOSING NOTE PATIENT IS A/O X 3, ABLE TO MAKE NEEDS KNOWN; STABLE ON ROOM AIR, BREATHING EVENLY AND NO S/S OF DISTRESS NOTED; WITH IV ACCESS AT RIGHT ANTECUBITAL G#20 RUNNING WITH D5 1/2 NS AT 75 ML/HR; WITH PAPPAS CATHETER IN PLACE DRAINING TO YELLOW COLORED URINE APPROXIMATELY 950ML; APPLIED Z GUARD OINTMENT AND OPTIFOAM DRESSING; NO COMPLAINTS OF PAIN AND DISCOMFORT AT THIS TIME; LATEST BLOOD SUGAR WAS 135; ADMINISTERED MEDICATIONS PRESCRIBED; PATIENT'S NEEDS ATTENDED; SAFETY MEASURES IMPLEMENTED, BED LOCKED IN LOW POSITION, SIDE RAILS UP X 2, CALL LIGHT AND TABLE WITHIN REACH; ENDORSED TO AM SHIFT NURSE FOR OLIVIA.
--- NOTE | 2022-11-20 07:38 | NUR ---
WOUND CARE CONSULT: PT PRESENTS WITH SACRAL INTACT DEEP TISSUE INJURY WITH SCARRING WELL AREA OF TENDERNESS TO MID/UPPER BACK WITH BLANCHABLE REDNESS, PRESENT ON ADMISSION. PMD TO EXAMINE PT FOR AREA OF DISCOMFORT. RECOMMENDATIONS MADE FOR SKIN PROTECTION. DISCUSSED WITH NURSING STAFF. ELYSE THOMAS. IN AGREEMENT WITH PLAN OF CARE. Addendum: 11/20/22 at 0740 by MG MOMIN WNDNU Amended: Links added.
--- NOTE | 2022-11-20 07:39 | NUR ---
MS RN NOTE RECEIVED PATIENT AWAKE IN BED, PATIENT IS A/O X 3-4, ABLE TO MAKE NEEDS KNOWN, STABLE ON ROOM AIR, BREATHING EVENLY AND NO S/S OF DISTRESS NOTED; WITH IV ACCESS AT RIGHT ANTECUBITAL G# 20 SALINE LOCK; WITH PAPPAS CATHETER IN PLACE DRAINING TO YELLOW COLORED URINE; SKIN ASSESSMENT DONE AND NOTED SACRAL DTI, APPLIED OPTIFOAM DRESSING; ENCOURAGED VERBALIZATION OF NEEDS; SAFETY MEASURES IMPLEMENTED, BED LOCKED IN LOW POSITION, SIDE RAILS UP X 2, CALL LIGHT AND TABLE WITHIN REACH; WILL CONTINUE TO MONITOR PATIENT.
[2022-11-20 08:00] VITALS: BP 131/63
[2022-11-20] MEDS ORDERED: NA PHOS,M-B/NA PHOS,DI-BA 1 EA ENEMA RC ONE (09:00)
--- NOTE | 2022-11-20 09:35 | NUR ---
RN NOTES PATIENT COMPLAINED OF LOWER BACK PAIN. RATE PAIN 3/10. TYLENOL 650MG GIVEN.
[2022-11-20] MEDS: PROSOURCE / PROSTAT (PYXIS) 30 ML UDC GT SCH ×2 (12:28→17:10)
[2022-11-20 16:00] VITALS: BP 120/63
[2022-11-20] MEDS ORDERED: DOCU-141 PO (17:01)
[2022-11-20] MEDS ORDERED: SENN-18 PO (17:01)
--- NOTE | 2022-11-20 18:42 | NUR ---
RN DISCHARGED NOTES PATIENT DISCHARGED HOME IN STABLE CONDITION. A/O X4. ABLE TO MAKE NEEDS KNOWN. ON RA, TOLERATING WELL, WITH PAPPAS CATHETER IN PLACE. NO SOB NOTED. ALL BELONGINGS ACCOUNTED FOR AND PT SIGNED BELONGINGS LIST. PICTURE TAKEN AND RECORDED. IV ACCESS ON RAC G#20 REMOVED WITH NO ACTIVE BLEEDING NOTED, DRY DRESSING APPLIED AT SITE. HEALTH TEACHINGS/DISCHARGE INSTRUCTIONS GIVEN TO PATIENT AND 2 DECISION SCIENCE ANALYST, VERBALIZED UNDERSTANDING. NAME ARMBAND REMOVED. PT LEFT UNIT VIA GURNEY ACCOMPANIED BY 2 DECISION SCIENCE ANALYST @ 4985. AND CHARGE NURSE AWARE OF D/C.,
== END 2022-11-20 18:37 | disposition home health service (06) | DRG 392 ==
LOC: ER 15:50 → TELE 20:18 → MED 21:45
PROVIDERS: ADMIT Internal Medicine; ATTEND Internal Medicine
DX: K59.00 Constipation, unspecified (principal); F03.94 Unspecified dementia, unspecified severity, with anxiety; D68.59 Other primary thrombophilia; E44.0 Moderate protein-calorie malnutrition; I69.354 Hemiplegia and hemiparesis following cerebral infarction affecting left non-dominant side; E11.9 Type 2 diabetes mellitus without complications; I10 Essential (primary) hypertension; E87.6 Hypokalemia; I25.10 Atherosclerotic heart disease of native coronary artery without angina pectoris; E03.9 Hypothyroidism, unspecified; K21.9 Gastro-esophageal reflux disease without esophagitis; E88.09 Other disorders of plasma-protein metabolism, not elsewhere classified; Z79.01 Long term (current) use of anticoagulants; Z79.84 Long term (current) use of oral hypoglycemic drugs; Z79.899 Other long term (current) drug therapy; Z88.5 Allergy status to narcotic agent; Z20.822 Contact with and (suspected) exposure to COVID-19
CPT/HCPCS: 36415; 71045-TC; 80048-TC; 80053-TC; 80076-TC; 81001; 82962-TC; 83690-TC; 83735-TC; 84100-TC; 85025-TC; 87081-TC; 87086-TC; A4223; C9803; G0378; J1815; J2405; J3490; J7030

== ENCOUNTER 2023-01-08 23:19 | Emergency (ER) | payer MEDICARE, OTHER ==
[~2023-01-08] VITALS: Ht 154.9 cm; Wt 73.0 kg
[~2023-01-08 23:19] MED LIST changes: +SENN-18 PO
--- NOTE | 2023-01-08 23:40 | NUR ---
Irrigated cohn cath, urine draining. patient states she feels better now that cohn is working properly.
--- NOTE | 2023-01-08 23:40 | NUR ---
Lee AOx4, able to express her concerns. Patient states she has a hx. of stroke and due to that she is not able to move lower extremities. Patient states she had a nurse help her at home with a bedbath and thinks she moved her cohn, since then her cohn has been empty and she has been experiencing discomfort. Discussed plan of care, patient verbalized agreement.
--- NOTE | 2023-01-09 00:17 | NUR ---
Urine collected, sent to lab
--- NOTE | 2023-01-09 00:22 | NUR ---
Son Ad ph. [phone]. [id number] [id number], [place], [facility]. pt on 2nd floor. pt lives with .
--- NOTE | 2023-01-09 00:26 | NUR ---
Son/Ad called, stating betsy has appt with Urology January 27. states he does no want patient taking antibiotics so that urine is "as is" for urologist. Explained to son that MD will use own judgement and communicate.
[2023-01-09 00:54] LABS: BILIRUBIN,URINE NEGATIVE (NEGATIVE); COLOR,URINE DARK YELLOW (YELLOW); LEUKOCYTE ESTERASE ,URINE 2+ (NEGATIVE); NITRITE, URINE NEGATIVE (NEGATIVE); PH,URINE 6.5 (5.0-8.0); PROTEIN,URINE NEGATIVE (NEGATIVE); UGLUCOSE 2+ mg/dL (NEGATIVE); UROBILINOGEN,URINE 0.2 EU/dL (0.2)
[2023-01-09 01:09] LABS: BACTERIA,URINE Moderate /HPF (None Seen); SQUAMOUS EPITHELIAL CELL,UR Few /HPF (None Seen); WBC,URINE 51-80 /HPF (0-3)
[2023-01-09] MEDS ORDERED: NITR100C6 PO (01:22)
--- NOTE | 2023-01-09 01:27 | NUR ---
[facility] CALLED FOR BLS GOING BACK TO SNF PER DISPATCH ETA 45 MIN
--- NOTE | 2023-01-09 01:32 | NUR ---
Tried calling son/Ad to provide ETA, no answer, no voice mail.
--- NOTE | 2023-01-09 01:45 | NUR ---
Spoke with patient, explained discharge and educated on importance of prescribed med. Patient will speak with family and try to get a sooner appointment with Urologist.
--- NOTE | 2023-01-09 02:37 | NUR ---
[facility] AMBULANCE AT BED SIDE TO P/U THE PT
[2023-01-09 02:55] VITALS: BP 102/68
== END 2023-01-09 02:56 | disposition home or self-care (01) ==
LOC: ER 23:26
DX: N39.0 Urinary tract infection, site not specified (principal); I10 Essential (primary) hypertension; E11.9 Type 2 diabetes mellitus without complications; Z79.899 Other long term (current) drug therapy; Z79.82 Long term (current) use of aspirin; Z86.73 Personal history of transient ischemic attack (TIA), and cerebral infarction without residual deficits; Z88.1 Allergy status to other antibiotic agents
CPT/HCPCS: 81001; 87086-TC

== ENCOUNTER 2023-05-21 18:29 | Emergency (ER) | payer MEDICARE, OTHER ==
[~2023-05-21] VITALS: Ht 157.5 cm; Wt 80.7 kg
[~2023-05-21 18:29] MED LIST changes: +NITR100C6 PO
[2023-05-21 19:51] LABS: BASOPHILS % (AUTO) 0.3 % (0.0-2.0); EOSINOPHILS # (AUTO) 0.1 K/uL (0.0-0.7); EOSINOPHILS % (AUTO) 0.9 % (0.0-6.0); HEMATOCRIT 40 % (33-45); HEMOGLOBIN 13.1 g/dL (11.5-14.8); LYMPHOCYTES # (AUTO) 2.1 K/uL (0.8-4.8); LYMPHOCYTES % (AUTO) 29.2 % (20.0-44.0); MEAN CORPUSCULAR HEMOGLOBIN 27 PG (26.0-33.0); MEAN CORPUSCULAR HGB CONC 33 g/dl (31.0-36.0); MEAN CORPUSCULAR VOLUME 82 fL (82-100); MONOCYTES # (AUTO) 0.5 K/uL (0.1-1.30); MONOCYTES % (AUTO) 7.1 % (2.0-12.0); NEUTROPHILS # (AUTO) 4.5 K/uL (1.8-8.9); NEUTROPHILS % (AUTO) 62.5 % (43.0-81.0); PLATELET COUNT (AUTO) 243 K/uL (150-450); RED BLOOD CELL COUNT(AUTO) 4.82 MIL/uL (4.0-5.2); RED CELL DISTRIBUTION WIDTH 14.1 % (11.5-15.0); WHITE BLOOD COUNT (AUTO) 7.3 K/uL (4.3-11.0)
[2023-05-21 19:57] LABS: APPEARANCE,URINE CLEAR (CLEAR); BILIRUBIN,URINE NEGATIVE (NEGATIVE); BLOOD, URINE NEGATIVE Ery/uL (NEGATIVE); COLOR,URINE YELLOW (YELLOW); KETONES,URINE NEGATIVE (NEGATIVE); LEUKOCYTE ESTERASE ,URINE 2+ (NEGATIVE); NITRITE, URINE NEGATIVE (NEGATIVE); PROTEIN,URINE NEGATIVE (NEGATIVE); UGLUCOSE NEGATIVE (NEGATIVE); UROBILINOGEN,URINE 0.2 EU/dL (0.2)
[2023-05-21 20:15] LABS: ALANINE AMINOTRANSFERASE 30 U/L (12-78); ALBUMIN 3.5 g/dL (3.4-5.0); ALKALINE PHOSPHATASE 78 U/L (46-116); ASPARTATE AMINOTRANSFERASE 20 U/L (15-37); BILIRUBIN,DIRECT 0.1 mg/dL (0.0-0.2); BILIRUBIN,TOTAL 0.3 mg/dL (0.2-1.0); CALCIUM, SERUM 9.6 mg/dL (8.5-10.1); CARBON DIOXIDE 27 mmol/L (21-32); CHLORIDE 102 mmol/L (98-107); CREATININE 0.8 mg/dL (0.6-1.3); GLUCOSE 171 mg/dL (74-106); LIPASE 54 U/L (16-77); POTASSIUM 4.1 mmol/L (3.5-5.1); SODIUM SERUM 139 mmol/L (136-145); TOTAL PROTEIN, SERUM 7.1 g/dL (6.4-8.2); UREA NITROGEN, BLOOD 13 mg/dL (7-18)
[2023-05-21 20:23] LABS: ADD URINE CULTURE YES; BACTERIA,URINE 1+ /HPF (None Seen); RBC,URINE 0-2 /HPF (0-2); SQUAMOUS EPITHELIAL CELL,UR Few /HPF (None Seen); WBC,URINE 81-100 /HPF (0-3)
[2023-05-21] MEDS ORDERED: SENN-261 PO (20:42)
[2023-05-21 22:34] VITALS: BP 120/65; TEMP 98.2; O2SAT 98
== END 2023-05-21 22:20 | disposition home or self-care (01) ==
LOC: ER 18:31
DX: N39.0 Urinary tract infection, site not specified (principal); K59.00 Constipation, unspecified; R10.84 Generalized abdominal pain; I10 Essential (primary) hypertension; E11.9 Type 2 diabetes mellitus without complications; Z79.899 Other long term (current) drug therapy; Z79.82 Long term (current) use of aspirin; Z88.5 Allergy status to narcotic agent
CPT/HCPCS: 36415; 80048-TC; 80076-TC; 81001; 83690-TC; 85025-TC; 87086-TC

== ENCOUNTER 2024-09-01 18:27 | Emergency (ER) | payer MEDICARE, OTHER ==
[~2024-09-01] VITALS: Ht 162.6 cm; Wt 78.9 kg
[~2024-09-01 18:27] MED LIST changes: +SENN-261 PO
[2024-09-01] MEDS ORDERED: ONDANSETRON HCL/PF 4 MG/2 ML VIAL ONE (20:08)
[2024-09-01] MEDS ORDERED: ACETAMINOPHEN 325 MG TABLET ONE (20:08)
[2024-09-01 20:13] LABS: BASOPHILS % (AUTO) 0.3 % (0.0-2.0); EOSINOPHILS % (AUTO) 0.5 % (0.0-6.0); HEMATOCRIT 40 % (33-45); MEAN CORPUSCULAR HEMOGLOBIN 30 PG (26.0-33.0); MEAN CORPUSCULAR HGB CONC 35 g/dl (31.0-36.0); MEAN CORPUSCULAR VOLUME 85 fL (82-100); MONOCYTES # (AUTO) 0.4 K/uL (0.1-1.30); MONOCYTES % (AUTO) 6.3 % (2.0-12.0); NEUTROPHILS # (AUTO) 4.1 K/uL (1.8-8.9); NEUTROPHILS % (AUTO) 62.9 % (43.0-81.0); PLATELET COUNT (AUTO) 242 K/uL (150-450); RED BLOOD CELL COUNT(AUTO) 4.76 MIL/uL (4.0-5.2); RED CELL DISTRIBUTION WIDTH 14.5 % (11.5-15.0); WHITE BLOOD COUNT (AUTO) 6.6 K/uL (4.3-11.0)
[2024-09-01] MEDS: ACETAMINOPHEN 325 MG TABLET PO ONE (20:14)
[2024-09-01] MEDS: IV NS 0.9% 1,000 ML BAG IV ONE (20:14)
[2024-09-01] MEDS: ONDANSETRON HCL/PF 4 MG/2 ML VIAL IV ONE (20:15)
[2024-09-01 20:23] LABS: CALCIUM, SERUM 9.2 mg/dL (8.5-10.1); CARBON DIOXIDE 29 mmol/L (21-32); CHLORIDE 104 mmol/L (98-107); GLUCOSE 201 mg/dL (74-106); POTASSIUM 4.5 mmol/L (3.5-5.1); SODIUM SERUM 140 mmol/L (136-145); UREA NITROGEN, BLOOD 15 mg/dL (7-18)
[2024-09-01 20:33] LABS: ALANINE AMINOTRANSFERASE 26 U/L (12-78); ALBUMIN 3.9 g/dL (3.4-5.0); ALKALINE PHOSPHATASE 78 U/L (46-116); ASPARTATE AMINOTRANSFERASE 27 U/L (15-37); BILIRUBIN,DIRECT 0.2 mg/dL (0.0-0.2); BILIRUBIN,TOTAL 0.5 mg/dL (0.2-1.0); LIPASE 61 U/L (16-77); TOTAL PROTEIN, SERUM 7.4 g/dL (6.4-8.2)
[2024-09-01 20:55] LABS: APPEARANCE,URINE Clear (CLEAR); BILIRUBIN,URINE SMALL (NEGATIVE); BLOOD, URINE Trace-intact Ery/uL (NEGATIVE); COLOR,URINE YELLOW (YELLOW); KETONES,URINE 15 mg/dL (NEGATIVE); LEUKOCYTE ESTERASE ,URINE Small (NEGATIVE); NITRITE, URINE Negative (NEGATIVE); PROTEIN,URINE 100 mg/dl (NEGATIVE); UGLUCOSE Negative (NEGATIVE); UROBILINOGEN,URINE 0.2 EU/dL (0.2)
[2024-09-01 21:01] LABS: ADD URINE CULTURE YES; BACTERIA,URINE Few /HPF (None Seen); SQUAMOUS EPITHELIAL CELL,UR Few /HPF (None Seen)
[2024-09-01] MEDS: HYDROCODONE/APAP 5/325MG TABLET PO ONE (21:45)
[2024-09-01 22:25] VITALS: BP 140/90; TEMP 98; O2SAT 97
== END 2024-09-01 22:50 | disposition home or self-care (01) ==
LOC: ER 18:47
DX: N39.0 Urinary tract infection, site not specified (principal); R10.9 Unspecified abdominal pain; E07.9 Disorder of thyroid, unspecified; E11.9 Type 2 diabetes mellitus without complications; G89.29 Other chronic pain; I10 Essential (primary) hypertension; K44.9 Diaphragmatic hernia without obstruction or gangrene; D25.9 Leiomyoma of uterus, unspecified; Z79.01 Long term (current) use of anticoagulants; Z79.52 Long term (current) use of systemic steroids; Z79.82 Long term (current) use of aspirin; Z79.84 Long term (current) use of oral hypoglycemic drugs; Z79.890 Hormone replacement therapy; Z79.899 Other long term (current) drug therapy; Z86.73 Personal history of transient ischemic attack (TIA), and cerebral infarction without residual deficits; Z88.5 Allergy status to narcotic agent
CPT/HCPCS: 99284; 74176; 85025; 80048; 83690; 80076; 81001; 36415; J7040; J2405

== ENCOUNTER 2025-01-31 17:24 | Emergency (ER) | payer MEDICARE, MEDICAID ==
[~2025-01-31] VITALS: Ht 167.6 cm; Wt 78.9 kg
[2025-01-31 18:10] LABS: PLATELET COUNT (AUTO) 256 K/uL (150-450); RED BLOOD CELL COUNT(AUTO) 4.58 MIL/uL (4.0-5.2); RED CELL DISTRIBUTION WIDTH 14.1 % (11.5-15.0); WHITE BLOOD COUNT (AUTO) 6.0 K/uL (4.3-11.0)
[2025-01-31] MEDS ORDERED: PANTOPRAZOLE 40 MG VIAL ONE (18:12)
[2025-01-31] MEDS: PANTOPRAZOLE 40 MG VIAL IV ONE (18:18)
[2025-01-31 18:36] LABS: CALCIUM, SERUM 9.1 mg/dL (8.5-10.1); CREATININE 0.8 mg/dL (0.6-1.3); SODIUM SERUM 140.0 mmol/L (136-145); UREA NITROGEN, BLOOD 12.0 mg/dL (7-18)
[2025-01-31 18:41] LABS: ASPARTATE AMINOTRANSFERASE 15.0 U/L (15-37); TOTAL PROTEIN, SERUM 7.5 g/dL (6.4-8.2)
[2025-01-31 18:45] LABS: APPEARANCE,URINE CLEAR (CLEAR); BLOOD, URINE Trace-intact Ery/uL (NEGATIVE); LEUKOCYTE ESTERASE ,URINE Trace (NEGATIVE); UGLUCOSE >=1000 mg/dL (NEGATIVE)
[2025-01-31 18:47] LABS: ADD URINE CULTURE NO; NITRITE, URINE NEGATIVE (NEGATIVE)
[2025-01-31 18:48] LABS: SQUAMOUS EPITHELIAL CELL,UR Few /HPF (None Seen); URINE AMORPHOUS URATE Few /HPF (None Seen)
[2025-01-31 21:17] VITALS: BP 151/52; TEMP 97.8; O2SAT 98
== END 2025-01-31 21:18 | disposition home or self-care (01) ==
LOC: ER 17:27
DX: R10.9 Unspecified abdominal pain (principal); I10 Essential (primary) hypertension; E11.65 Type 2 diabetes mellitus with hyperglycemia; K59.00 Constipation, unspecified; Z79.01 Long term (current) use of anticoagulants; Z79.52 Long term (current) use of systemic steroids; Z79.82 Long term (current) use of aspirin; Z79.84 Long term (current) use of oral hypoglycemic drugs; Z79.890 Hormone replacement therapy; Z79.899 Other long term (current) drug therapy; Z86.73 Personal history of transient ischemic attack (TIA), and cerebral infarction without residual deficits; Z87.440 Personal history of urinary (tract) infections; Z88.5 Allergy status to narcotic agent
CPT/HCPCS: 99285; 74176; 96374; 71045; 93005; 85025; 80048; 83690; 80076; 81001; 36415; J2470